=== PATIENT | female | born 1970 | race Caucasian/White ===

== ENCOUNTER 2016-05-13 05:34 | Day surgery (SDC) ==
[2016-05-13] MEDS ORDERED: NS 1,000 ML ONE (07:18)
[2016-05-13] MEDS ORDERED: MYLICON DROPS (DOSE) MISC ONE (09:02)
[2016-05-13] MEDS ORDERED: XYLOCAINE-MPF 2% ONE (09:43)
[2016-05-13 09:58] VITALS: BP 141/86
[2016-05-13] MEDS ORDERED: VERSED ONE (12:31)
[2016-05-13] MEDS ORDERED: DIPRIVAN 1% 50 ML ONE (12:35)
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
--- NOTE | 2016-05-18 03:58 | OPERATIVE NOTE ---
PROCEDURE DATE: 05/13/2016 REFERRING PHYSICIAN: Ambreen Medel MD INDICATION FOR PROCEDURE: 1. Change in bowel habits with worsening constipation. 2. Family history of colon cancer (father in his early 40s). PROCEDURE PERFORMED: Colonoscopy with biopsy. CONSENT: Informed consent was obtained from the patient prior to the procedure. The risks, benefits, and alternatives were discussed. MEDICATIONS: The patient received monitored anesthesia care. PERFORMING PHYSICIAN: Torrie Hawkins MD. ASSISTANTS: 1. [facility]. 2. Tanner Hartman RN. 3. Gabriella Carreon CRNA. 4. Pablo Pretty MD (Anesthesia). COMPLICATIONS: There were no complications. ESTIMATED BLOOD LOSS: Less than 1 mL. SPECIMEN REMOVED: Rectal polyp. CECAL INTUBATION TIME: Two 2 minutes. WITHDRAWAL TIME: Ten minutes. PREP QUALITY: Good. FINDINGS: After the esophagogastroduodenoscopy was performed, the patient was repositioned. The pediatric colonoscope was inserted to the cecum. The terminal ileum, ileocecal valve, and appendiceal orifice appeared endoscopically normal. There were scattered nonbleeding arteriovenous malformations on the ileocecal valve and throughout the colon upon withdrawal. The mucosa appeared otherwise normal. There were no masses or polyps seen. In the upper rectum, there were Grade 1 internal hemorrhoids. In the mid rectal body, there was a small rectal polyp that was removed by cold biopsy forceps. On retroflexed view, there were medium external hemorrhoids. After the exam was complete, the lumen was decompressed and the scope was removed without incident. IMPRESSION: 1. Nonbleeding arteriovenous malformations throughout the colon. 2. Small rectal polyp, status post biopsy. 3. Grade 1 internal hemorrhoids. 4. Medium external hemorrhoids. 5. No masses seen. RECOMMENDATION: 1. Await biopsy results. 2. Begin MiraLAX 17 grams daily for treatment of constipation. 3. Increase dietary fiber for constipation. 4. Repeat colonoscopy in 3-5 years, depending on the biopsy results. 5. Will have the patient return to clinic in 4 weeks to assess interval progress.
--- NOTE | 2016-05-18 04:01 | OPERATIVE NOTE ---
PROCEDURE DATE: 05/13/2016 REFERRING PHYSICIAN: Ambreen Medel MD. INDICATION FOR PROCEDURE: 1. Dysphagia. 2. Family history of colon cancer. PROCEDURE PERFORMED: Esophagogastroduodenoscopy with biopsy. CONSENT: Informed consent was obtained from the patient prior to the procedure. The risks, benefits, and alternatives were discussed. MEDICATIONS: The patient received monitored anesthesia care. PERFORMING PHYSICIAN: Torrie Hawkins MD. ASSISTANTS: 1. [facility] 2. Tanner Hartman RN. 3. Gabriella Carreon CRNA. 4. Pablo Pretty MD (anesthesia). COMPLICATIONS: There were no complications. ESTIMATED BLOOD LOSS: Less than 1 mL. SPECIMENS REMOVED: 1. Duodenal biopsy. 2. Gastric biopsy. FINDINGS: After sedation was achieved, the upper endoscope was inserted to the 2nd portion of the duodenum. The hypopharynx appeared endoscopically normal. The tubular esophagus was normal to the distal esophagus. There was grade B erosive esophagitis with a superficial erosion at the GE junction. The GE junction was measured at 38 cm from the incisors. There was a hiatal hernia from 38-40 cm. In the gastric lumen, there was erosive gastritis in the antrum, fundus, and body. There was a superficial, whitish based ulcer in the mid gastric body with no stigmata of bleeding. The pylorus was inflamed but patent. In the duodenum, there were streaks of erythema with nodular changes consistent with erosive duodenitis. Biopsies were taken from the duodenal and gastric mucosa. The lumen was decompressed and the scope was removed without incident. IMPRESSION: 1. Grade B erosive esophagitis. 2. Hiatal hernia. 3. Erosive gastritis. 4. Ulcer in the mid gastric body. 5. Duodenitis. RECOMMENDATION: 1. Begin Prilosec 40 mg 1 p.o. daily. 2. Begin Carafate 1 g p.o. 4 times a day. 3. Await biopsy results. 4. We will proceed with a colonoscopy as previously scheduled.
== END 2016-05-13 10:01 | disposition home or self-care (01) ==
LOC: ENDO 05:34
PROVIDERS: ATTEND Internal Medicine Gastroenterology
DX: K55.20 Angiodysplasia of colon without hemorrhage (principal); K63.5 Polyp of colon; K29.50 Unspecified chronic gastritis without bleeding; K64.8 Other hemorrhoids; K64.4 Residual hemorrhoidal skin tags; Z80.0 Family history of malignant neoplasm of digestive organs; R13.10 Dysphagia, unspecified; K20.8 Other esophagitis; K25.9 Gastric ulcer, unspecified as acute or chronic, without hemorrhage or perforation; K29.80 Duodenitis without bleeding
CPT/HCPCS: 88305; 88312; J2250; J7030

== ENCOUNTER 2016-05-17 20:18 | Emergency (ER) ==
[2016-05-17 20:22] VITALS: BP 145/77
[2016-05-17] MEDS ORDERED: DECADRON IM ONE (20:42)
[2016-05-17] MEDS ORDERED: BENADRYL IM ONE (20:42)
[2016-05-17] MEDS ORDERED: PEPCID PO ONE (20:43)
--- NOTE | 2016-05-17 20:52 | PROVIDER DOCUMENTATION ---
HPI-Rash/Wound/ReCheck - General Chief Complaint: Allergic Reaction Stated Complaint: ALLERGIC REACTION Time Seen by Provider: 05/17/16 20:32 Allergies/Adverse Reactions: Allergies Allergy/AdvReac Type Severity Reaction Status Date / Time No Known Allergies Allergy Verified 05/17/16 20:47 Home Medications: Home Medication List Medication Instructions Recorded Confirmed Last Taken Type LISINOpril [Prinivil] 20 mg PO BID 11/28/15 05/17/16 05/17/16 History Diphenhydramine [Benadryl] 50 mg PO Q6H #30 capsule 05/17/16 Unknown Rx Famotidine [Pepcid] 40 mg PO DAILY #10 tablet 05/17/16 Unknown Rx Prednisone 40 mg PO DAILY #3 tablet 05/17/16 Unknown Rx - History of Present Illness-Dermatology Nature of Presenting Problem: Pt comes in and with complaint of red itchy rash mainly to her shoulders and chest. She states that she hasn't changed any of her soaps, or detergents. 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 She denies having known allergies. Review of Systems - Adult - REVIEW OF SYSTEMS - ADULT Constitutional: reports: no symptoms reported. denies: chills, fever, night sweats, weight gain, weight loss Eyes: reports: no symptoms reported. denies: discharge, dry eyes, decreased vision, blurred vision, double vision, eye pain, redness Ears, Nose, Mouth & Throat: reports: no symptoms reported. denies: ear discharge, ear pain, hearing loss, tinnitus, epistaxis, nose pain, loose teeth, mouth swelling, hoarseness, throat swelling Cardiovascular: reports: no symptoms reported. denies: chest pain, edema, heart murmur, irregular heart rate, palpitations, poor circulation, PND, syncope Respiratory: reports: no symptoms reported. denies: chronic cough, cough, dyspnea on exertion, excessive sputum production, pleurisy, shortness of breath , wheezing Gastrointestinal: reports: no symptoms reported. denies: abdominal pain, hematemesis, constipation, diarrhea, frequent heartburn, nausea, poor appetite, rectal bleeding, vomiting Genitourinary: reports: no symptoms reported. denies: dysuria, discharge, flank pain, hematuria, incontinence, urinary retention Musculoskeletal: reports: no symptoms reported. denies: bone pain, back pain, frequent leg cramps, joint pain, muscle aches, muscle weakness, neck pain Integumentary: reports: see HPI, hives, rash. denies: hair loss, itching, mole changes, nail changes, skin sores/ulcer, skin thickening Neurological: reports: no symptoms reported. denies: ataxia, headache/migraines , loss of balance, seizure, slurred speech, syncope, tremors Psychiatric: reports: no symptoms reported. denies: anxiety, anti-depressant use, alcohol/drug dependence, depression, insomnia, panic attacks, suicidal thoughts Endocrine: reports: no symptoms reported. denies: change in skin pigment, excessive sweating, cold intolerance, increased hunger, increased thirst, polyuria Hematologic/Lymphatic: reports: no symptoms reported. denies: blood clots, easy bruising, low blood count, prolonged bleeding, swollen lymph nodes, transfusions Allergic/Immunologic: reports: see HPI, allergic reactions. denies: allergic rhinitis, asthma, food allergy, frequent infections, hay fever, positive PPD, urticaria All Other Systems: Reviewed and Negative Past History - Adult - PAST MEDICAL HISTORY-ADULT Review of Records: reports: Old Records Reviewed, Nursing Assessment Review, Medications Reviewed, Social history reviewed & non-contributory. Major Childhood Illnesses: reports: denies history Cardiovascular: reports: HTN Respiratory: reports: denies history Gastrointestinal: reports: denies history Obstetrical/Gynecological: reports: denies history Genitourinary: reports: denies history Musculoskeletal: reports: denies history Neurological: reports: denies history Endocrine/Immune: reports: denies history Other Conditions: reports: denies history - PRIOR SURGERIES/PROCEDURES Surgical/Procedure History: reports: hysterectomy, orthopedic (extremity) - PRIOR HOSPITALIZATIONS Prior Hospitalizations: reports: none - IMMUNIZATION STATUS Childhood Immunizations: See Nurse Assessment Flu Vaccine: See Nurse Assessment - FAMILY HISTORY Family History: reviewed, not pertinent - SOCIAL HISTORY Smoking: denies Substance Use: none/never Alcohol Use Frequency: never Living Situation: family Physical Exam-General - PHYSICAL EXAM-ADULT Initial Vital Signs Reviewed: Yes - CONSTITUTIONAL General Appearance: appears well, alert, mild distress - EYES Eyes: PERRL/EOMI, pink conjunctivae - HEAD, EARS, NOSE, MOUTH & THROAT HENMT: normocephalic/atraumatic, moist mucous membranes, normal ENT inspection - NECK Neck: non-tender, full range of motion, supple - RESPIRATORY Respiratory: chest non-tender, lungs clear, normal breath sounds, no pleuratic chest pain, no respiratory distress, no accessory muscle use - CARDIOVASCULAR Cardiovascular: normal peripheral pulses, regular rate, rhythm, no edema - CHEST (BREASTS) Chest/Breast: deferred - GASTROINTESTINAL (ABDOMEN) Abdominal Exam: normal bowel sounds, non tender, soft, no organomegaly - GENITOURINARY Female Genitalia/Pelvic Exam: deferred - MUSCULOSKELETAL Back Exam: normal inspection, no CVA tenderness, no vertebral tenderness Extremity: normal range of motion, non-tender, normal gait, normal inspection, no pedal edema - SKIN Integumentary: normal turgor, warm/dry, erythema, rash - NEUROLOGIC Neurologic: business intelligence reporting analyst II-XII nml as tested, grossly normal - PSYCHIATRIC Psych/Mental Status: normal mood/affect, normal thought content, normal thought process, oriented x 3 Progress - PLAN OF CARE/RESULTS Progress/Plan/Lab Results: Orders Category Date Time Status Dexamethasone [Decadron] Med 05/17/16 20:42 Discontinued 10 mg IM NOW ONE Diphenhydramine [Benadryl] Med 05/17/16 20:42 Discontinued 50 mg IM NOW ONE Famotidine [Pepcid] Med 05/17/16 20:43 Discontinued 40 mg PO NOW ONE Vital Signs - 24 hr 05/17/16 20:21 Temperature 97.9 F Pulse Rate 106 H Respiratory 18 Rate Blood Pressure 145/77 O2 Sat by Pulse 99 Oximetry Departure - Departure Time of Disposition Order: 21:57 DIAGNOSIS: Allergic dermatitis Allergic reaction Qualifiers: Encounter type: initial encounter Qualified Code(s): T78.40XA - Allergy, unspecified, initial encounter Disposition: HOME 01 Certified Medical Emergency: Emergent Condition: Good Additional Instructions: ED Follow Up Instructions: You have been treated by a care provider in the Emergency Department. These instructions are being provided to you so you can have an understanding of how to care for yourself upon discharge. Upon discharge from the Emergency Department, you are responsible for making arrangements for follow-up care by a physician of your choice. Take all prescribed medications as directed. Return to the Emergency Department immediately for any new or worsening symptoms. You may call the Physician Referral phone number at [phone] to obtain a list of Physicians who are taking new patients. Prescriptions: Diphenhydramine [Benadryl] 50 mg PO Q6H #30 capsule Famotidine [Pepcid] 40 mg PO DAILY #10 tablet Prednisone 40 mg PO DAILY #3 tablet Referrals: None,PCP [Primary Care Provider] - Instructions: Contact Dermatitis, Allergies Attestation - Physician/ JAVIER Attestation Patient care was provided by Advanced Practice Provider:: Yes Advanced Practice Provider:: Marcus Elias Advanced Practice Provider documentation review:: The Mid-level provider documentation, treatment plan and medical decision making was reviewed by the physician who agrees with all treatment and medical decision making by the MLP.
== END 2016-05-17 21:25 | disposition home or self-care (01) ==
LOC: ED 20:18
DX: L23.9 Allergic contact dermatitis, unspecified cause (principal); T78.40XA Allergy, unspecified, initial encounter; R21 Rash and other nonspecific skin eruption; L29.9 Pruritus, unspecified; L50.9 Urticaria, unspecified; I10 Essential (primary) hypertension; Z79.899 Other long term (current) drug therapy
CPT/HCPCS: J1200